=== PATIENT | female | born 1995 | race Caucasian/White ===

== ENCOUNTER 2018-02-24 18:53 | Inpatient (IN) | payer MEDICAID, OTHER ==
[~2018-02-24] VITALS: Ht 175.3 cm; Wt 80.0 kg
[2018-02-24] MEDS ORDERED: adenosine 3mg/ml 2ml vial IV ONE (19:25)
[2018-02-24] MEDS ORDERED: normal saline 1000ML IV soln IV ONE (19:35)
[2018-02-24 19:44] LABS: BASOPHILS % (AUTO) 0.2 % (0-1); EOSINOPHILS # (AUTO) 0.3 X10'3 (0-0.9); EOSINOPHILS % (AUTO) 2.4 % (0-6); HEMATOCRIT 43.9 % (35.0-45.0); HEMOGLOBIN 14.6 g/dl (12.0-16.0); LYMPHOCYTES # (AUTO) 1.4 X10'3 (1.1-4.8); MEAN CORPUSCULAR HEMOGLOBIN 27.8 PG (27.0-31.0); MEAN CORPUSCULAR HGB CONC 33.3 % (33.0-36.5); MEAN CORPUSCULAR VOLUME 83.5 FL (78-98); MEAN PLATELET VOLUME 8.5 FL (7.4-10.4); MONOCYTES # (AUTO) 1.1 X10'3 (0-0.9); MONOCYTES % (AUTO) 8.2 % (2-12); NEUTROPHILS # (AUTO) 10.1 X10'3 (1.8-7.7); NEUTROPHILS % (AUTO) 78.2 % (42-75); PLATELET COUNT 364 X10'3 (140-440); RED BLOOD COUNT 5.25 X10'6 (4.20-5.60); RED CELL DISTRIBUTION WIDTH 13.9 % (11.5-14.5); WHITE BLOOD COUNT 12.9 X10'3 (4.5-11.0)
[2018-02-24 20:04] LABS: ALANINE AMINOTRANSFERASE 24 U/L (12-78); ALBUMIN 4.2 G/DL (3.4-5.0); ALKALINE PHOSPHATASE 90 IU/L (46-116); ANION GAP 14 (8-16); ASPARTATE AMINO TRANSFERASE 12 U/L (10-37); BILIRUBIN,TOTAL 0.3 MG/DL (0.1-1.0); BLOOD UREA NITROGEN 6 MG/DL (7-18); BUN/CREATININE RATIO 6.5 (6.6-38.0); CALCIUM 9.8 MG/DL (8.5-10.1); CHLORIDE 101 MMOL/L (99-107); CREATININE 0.92 MG/DL (0.40-0.90); GLUCOSE 152 MG/DL (70-104); MAGNESIUM 1.9 MG/DL (1.5-2.4); POTASSIUM 3.5 MMOL/L (3.5-5.1); SODIUM 140 MMOL/L (135-145); TOTAL CARBON DIOXIDE 25.3 MMOL/L (24-32); TOTAL PROTEIN 8.6 G/DL (6.4-8.2); eGFR 76 ML/MIN
[2018-02-24 20:06] LABS: CLARITY,URINE CLEAR (Clear); COLOR,URINE YELLOW (Yellow); GLUCOSE, URINE NEGATIVE (Neg); KETONES,URINE NEGATIVE (Neg); LEUKOCYTE ESTERASE ,URINE NEGATIVE (Neg); NITRITES, URINE NEGATIVE (Neg); OCCULT BLOOD,URINE TRACE-INTACT (Neg); PH,URINE 6.5 (4.8-8.0); PROTEIN,URINE TRACE mg/dl (Neg); UROBILINOGEN,URINE 0.2 E.U/dL (0.2-1.0)
[2018-02-24 20:07] LABS: URINE HCG NEGATIVE (NEG)
[2018-02-24 20:11] LABS: D-DIMER 0.22 MG/L FEU (0-0.50)
[2018-02-24 20:26] LABS: UA COLLECTION TYPE CLN CATCH MIDSTREAM
[2018-02-24 20:28] LABS: BACTERIA,URINE FEW /HPF (Neg); RBC,URINE NONE SEEN /HPF (0-2); SQUAMOUS EPITHELIAL CELL,UR MANY /LPF (FEW); WBC,URINE 0-4 /HPF (0-4)
[2018-02-24] MEDS ORDERED: albuterol 2.5 MG/3 ML nebule NEB ONE (20:40)
[2018-02-24] MEDS ORDERED: methylPREDNISolone sod succ 125mg/2ml vial IV ONE (20:40)
[2018-02-24] MEDS ORDERED: temazepam 15mg capsule PO PRN (21:00)
[2018-02-24] MEDS ORDERED: azithromycin/NS 500mg/250ml 250 ML IV ONE (21:20)
[2018-02-24] MEDS ORDERED: diphenhydrAMINE 50 mg/ml inj IV PRN (21:35)
[2018-02-24] MEDS ORDERED: HYDROcodone/acetaminophen 10/325mg tab PO PRN (21:35)
[2018-02-24] MEDS ORDERED: metoclopramide 5 mg/ml inj IV PRN (21:35)
[2018-02-24] MEDS ORDERED: magnesium hydroxide 30ml (MOM) UD suspension PO PRN (21:35)
[2018-02-24] MEDS ORDERED: acetaminophen 650mg rectal suppository RC PRN (21:35)
[2018-02-24] MEDS ORDERED: morphine 2 MG/ML inj. syringe IV PRN (21:35)
[2018-02-24] MEDS ORDERED: acetaminophen 325mg tablet PO PRN ×2 (21:35)
[2018-02-24] MEDS ORDERED: mag hydrox/Alum hydrox/simeth 30ml oral suspension PO PRN (21:35)
[2018-02-24] MEDS ORDERED: bisacodyl 10mg suppository rectal RC PRN (21:35)
[2018-02-24] MEDS ORDERED: HYDROmorphone 1 mg/ml syringe IV PRN (21:35)
[2018-02-24 21:55] LABS: HEMOGLOBIN A1C 5.4 % (4.5-6.2)
[2018-02-24] MEDS: normal saline 1000ml 1,000 ML IV SCH (22:03)
[2018-02-24 22:09] LABS: CREATINE KINASE 57 U/L (26-192); PHOSPHORUS 2.3 MG/DL (2.3-4.5)
[2018-02-24] MEDS ORDERED: NO HOME MEDS (22:09)
[2018-02-24] MEDS ORDERED: ketorolac trometh. 30mg/ml inj. IV PRN (22:10)
[2018-02-24] MEDS ORDERED: acetaminophen/codeine 120mg/12mg per 5ml cup PO PRN (22:10)
[2018-02-24 22:22] LABS: URINE AMPHETAMINE SCREEN NEGATIVE (Neg); URINE BARBITUATE SCREEN NEGATIVE (Neg); URINE BENZODIAZEPINES SCREEN NEGATIVE (Neg); URINE CANNABINOID SCREEN NEGATIVE (Neg); URINE COCAINE SCREEN NEGATIVE (Neg); URINE METHADONE SCREEN NEGATIVE (Neg); URINE OPIATE SCREEN NEGATIVE (Neg); URINE PHENCYCLIDINE SCREEN NEGATIVE (Neg)
[2018-02-24] MEDS: montelukast 10mg tablet PO SCH (22:47)
[2018-02-24] MEDS: ondansetron/PF 4mg/2ml inj IV PRN (22:48)
[2018-02-25] MEDS ORDERED: NO HOME MEDS
[2018-02-25 00:40] VITALS: BP 128/84
[2018-02-25] MEDS: benzonatate 100mg capsule PO SCH ×3 (01:29→15:26)
[2018-02-25] MEDS: diphenhydrAMINE 25mg capsule PO PRN ×2 (01:29→01:30)
[2018-02-25] MEDS ORDERED: albuterol 2.5 MG/3 ML nebule NEB PRN (02:30)
[2018-02-25 03:23] LABS: BASOPHILS % (AUTO) 0 % (0-1); EOSINOPHILS % (AUTO) 0 % (0-6); HEMATOCRIT 38.7 % (35.0-45.0); HEMOGLOBIN 12.8 g/dl (12.0-16.0); LYMPHOCYTES # (AUTO) 0.3 X10'3 (1.1-4.8); LYMPHOCYTES % (AUTO) 4.7 % (21-51); MEAN CORPUSCULAR HEMOGLOBIN 27.5 PG (27.0-31.0); MEAN CORPUSCULAR VOLUME 83.4 FL (78-98); MEAN PLATELET VOLUME 8.6 FL (7.4-10.4); MONOCYTES % (AUTO) 0.4 % (2-12); NEUTROPHILS # (AUTO) 6.8 X10'3 (1.8-7.7); NEUTROPHILS % (AUTO) 94.9 % (42-75); PLATELET COUNT 305 X10'3 (140-440); RED BLOOD COUNT 4.64 X10'6 (4.20-5.60); RED CELL DISTRIBUTION WIDTH 13.6 % (11.5-14.5); WHITE BLOOD COUNT 7.1 X10'3 (4.5-11.0)
[2018-02-25 03:37] LABS: ALANINE AMINOTRANSFERASE 20 U/L (12-78); ALBUMIN 3.5 G/DL (3.4-5.0); ALBUMIN/GLOBULIN RATIO 0.9 (1.1-1.5); ALKALINE PHOSPHATASE 85 IU/L (46-116); ANION GAP 10 (8-16); ASPARTATE AMINO TRANSFERASE 11 U/L (10-37); BILIRUBIN,TOTAL 0.3 MG/DL (0.1-1.0); BLOOD UREA NITROGEN 5 MG/DL (7-18); BUN/CREATININE RATIO 6.6 (6.6-38.0); CALCIUM 8.9 MG/DL (8.5-10.1); CHLORIDE 106 MMOL/L (99-107); CREATININE 0.76 MG/DL (0.40-0.90); GLUCOSE 149 MG/DL (70-104); POTASSIUM 3.8 MMOL/L (3.5-5.1); SODIUM 142 MMOL/L (135-145); TOTAL CARBON DIOXIDE 26.5 MMOL/L (24-32); TOTAL PROTEIN 7.6 G/DL (6.4-8.2); eGFR > 90 ML/MIN
[2018-02-25 07:00] VITALS: BP 119/82
[2018-02-25] MEDS ORDERED: methylPREDNISolone sod succ 125mg/2ml vial IV SCH (08:00)
[2018-02-25] MEDS: heparin, porcine 5000 units/ml vial SQ SCH ×2 (08:00→19:59)
[2018-02-25] MEDS: ondansetron/PF 4mg/2ml inj IV PRN (08:07)
[2018-02-25] MEDS: docusate sod 100mg capsule PO SCH ×2 (08:15→19:59)
[2018-02-25] MEDS: montelukast 10mg tablet PO SCH (08:16)
[2018-02-25] MEDS: pantoprazole 40mg Tablet.DR PO SCH (08:25)
[2018-02-25] MEDS: normal saline 1000ml 1,000 ML IV SCH (08:27)
[2018-02-25] MEDS: levoFLOXACIN-Levaquin 750MG/D5 150 ML IV SCH (08:29)
[2018-02-25 11:56] VITALS: BP 117/81
[2018-02-25 11:58] VITALS: BP 138/51
[2018-02-25] MEDS ORDERED: iohexol 300mg/ml 100ml inj. ONE (11:58)
[2018-02-25] MEDS: CefTRIAXone 2gm/D5W 50ml 50 ML IV SCH (15:28)
[2018-02-25] MEDS: albuterol 2.5 MG/3 ML nebule NEB SCH ×3 (16:33→23:58)
[2018-02-25] MEDS ORDERED: carVEDilol 3.125mg tablet PO ONE (17:20)
[2018-02-25 18:00] VITALS: BP 117/69
[2018-02-25] MEDS: methylPREDNISolone sod succ 125mg/2ml vial IV SCH (19:57)
[2018-02-26] VITALS: BP 113/70
[2018-02-26] MEDS: benzonatate 100mg capsule PO SCH ×2 (00:14→08:07)
[2018-02-26] MEDS: albuterol 2.5 MG/3 ML nebule NEB SCH ×2 (02:44→07:31)
[2018-02-26 06:07] LABS: BASOPHILS % (AUTO) 0.2 % (0-1); EOSINOPHILS # (AUTO) 0.1 X10'3 (0-0.9); EOSINOPHILS % (AUTO) 1.2 % (0-6); HEMATOCRIT 38.9 % (35.0-45.0); HEMOGLOBIN 12.9 g/dl (12.0-16.0); LYMPHOCYTES # (AUTO) 1.3 X10'3 (1.1-4.8); LYMPHOCYTES % (AUTO) 11.1 % (21-51); MEAN CORPUSCULAR HEMOGLOBIN 27.9 PG (27.0-31.0); MEAN CORPUSCULAR HGB CONC 33.3 % (33.0-36.5); MEAN CORPUSCULAR VOLUME 83.8 FL (78-98); MEAN PLATELET VOLUME 8.6 FL (7.4-10.4); MONOCYTES # (AUTO) 0.7 X10'3 (0-0.9); MONOCYTES % (AUTO) 6.1 % (2-12); NEUTROPHILS # (AUTO) 9.4 X10'3 (1.8-7.7); NEUTROPHILS % (AUTO) 81.4 % (42-75); PLATELET COUNT 367 X10'3 (140-440); RED BLOOD COUNT 4.64 X10'6 (4.20-5.60); WHITE BLOOD COUNT 11.6 X10'3 (4.5-11.0)
[2018-02-26 06:25] LABS: ALANINE AMINOTRANSFERASE 20 U/L (12-78); ALBUMIN 3.6 G/DL (3.4-5.0); ALBUMIN/GLOBULIN RATIO 0.9 (1.1-1.5); ALKALINE PHOSPHATASE 81 IU/L (46-116); ANION GAP 10 (8-16); ASPARTATE AMINO TRANSFERASE 10 U/L (10-37); BILIRUBIN,TOTAL 0.2 MG/DL (0.1-1.0); BLOOD UREA NITROGEN 11 MG/DL (7-18); BUN/CREATININE RATIO 12.8 (6.6-38.0); CALCIUM 9.2 MG/DL (8.5-10.1); CHLORIDE 103 MMOL/L (99-107); CREATININE 0.86 MG/DL (0.40-0.90); GLUCOSE 120 MG/DL (70-104); POTASSIUM 3.9 MMOL/L (3.5-5.1); SODIUM 139 MMOL/L (135-145); TOTAL CARBON DIOXIDE 25.7 MMOL/L (24-32); TOTAL PROTEIN 7.8 G/DL (6.4-8.2); eGFR 83 ML/MIN
[2018-02-26 07:31] VITALS: BP 116/69
[2018-02-26] MEDS: heparin, porcine 5000 units/ml vial SQ SCH (08:00)
[2018-02-26] MEDS: CefTRIAXone 2gm/D5W 50ml 50 ML IV SCH (08:03)
[2018-02-26] MEDS: docusate sod 100mg capsule PO SCH (08:06)
[2018-02-26] MEDS: montelukast 10mg tablet PO SCH (08:07)
[2018-02-26] MEDS: methylPREDNISolone sod succ 125mg/2ml vial IV SCH (08:07)
[2018-02-26] MEDS: levoFLOXACIN-Levaquin 750MG/D5 150 ML IV SCH (08:11)
[2018-02-26] MEDS: pantoprazole 40mg Tablet.DR PO SCH (08:19)
[2018-02-26] MEDS: ondansetron/PF 4mg/2ml inj IV PRN (08:48)
[2018-02-26 11:43] VITALS: BP 148/73
[2018-02-26] MEDS ORDERED: LEVO500T2 PO (12:16)
[2018-02-26] MEDS ORDERED: ALBU8HFA PO (12:16)
[2018-02-26] MEDS ORDERED: LEVA0.6319 NEB (12:16)
[2018-02-26] MEDS ORDERED: levalbuterol 0.63mg/3ml nebule IH SCH (15:00)
== END 2018-02-26 13:31 | disposition home or self-care (01) | DRG 720 ==
LOC: ER 18:54 → PCU 3S 21:33 → SUR 3N 02-25 00:08
PROVIDERS: ADMIT Family Medicine; ATTEND Family Medicine
DX: A41.9 Sepsis, unspecified organism (principal); J96.01 Acute respiratory failure with hypoxia; I47.1 Supraventricular tachycardia; J18.1 Lobar pneumonia, unspecified organism; J45.51 Severe persistent asthma with (acute) exacerbation; E86.0 Dehydration
CPT/HCPCS: 36415; 71045; 71260; 80053; 80305; 81001; 81025; 82550; 83036; 83605; 83735; 83880; 84100; 84145; 84443; 84484; 85025; 85379; 87040; 87070; 87502; 87503; 93306; 94640; 94667; 94760; 96361; 96365; 96374; G0378; J0456; J0696; J1644; J1956; J2405; J2930; J7030; J7614; Q0163; Q9967

== ENCOUNTER 2018-08-28 18:49 | Emergency (ER) | payer MEDICAID, OTHER ==
[~2018-08-28] VITALS: Ht 175.3 cm; Wt 98.2 kg
[~2018-08-28 18:49] MED LIST: LEVA0.6319 NEB
[2018-08-28 18:52] VITALS: BP 129/78
--- NOTE | 2018-08-28 20:03 | NUR ---
PATIENT REFUSED TO WAIT FOR PROVIDER "ANY LONGER" AND WALKED OUT.
--- NOTE | 2018-08-28 20:04 | NUR ---
[employer] LOL[employer] AWARE THAT PATIENT LEFT WITH OUT BEING SEEN
== END 2018-08-28 20:00 | disposition left against medical advice (07) ==
LOC: ER 18:50
DX: H92.01 Otalgia, right ear (principal); Z53.21 Procedure and treatment not carried out due to patient leaving prior to being seen by health care provider